=== PATIENT | female | born 1975 | race Caucasian/White ===

== ENCOUNTER → 2021-07-17 00:01 | Outpatient (BNVA) | payer BC, OTHER, SELFPAY | PROVIDERS: Family Provider Nurse Practitioner Family; PCP Nurse Practitioner Family; Visit Provider Nurse Practitioner Family | DX: Z20.822 Contact with and (suspected) exposure to COVID-19 (principal) | CPT/HCPCS: 87635 ==

== ENCOUNTER 2021-07-20 08:16 | Outpatient (CLI) | payer BC, OTHER, SELFPAY ==
[2021-07-20 08:22] VITALS: BP 126/90; PULSE 98; RESP 20; TEMP 36.8; O2SAT 97; BMI 40.1
[2021-07-20 09:30] VITALS: BP 110/92; PULSE 96; RESP 18; TEMP 37.2; O2SAT 97
[2021-07-20 10:35] VITALS: BP 104/69; PULSE 92; RESP 20; TEMP 37.7; TEMP 37.8; O2SAT 97
== END 2021-07-20 08:17 | disposition home or self-care (01) ==
LOC: OPS 08:16
PROVIDERS: PCP Nurse Practitioner Family; Visit Provider Nurse Practitioner Family
DX: U07.1 COVID-19 (principal)
CPT/HCPCS: 96365